=== PATIENT | male | born 1960 ===

== ENCOUNTER 2019-02-25 15:41 | Emergency (ER) | payer OTHER ==
--- NOTE | 2019-02-25 16:51 | ULT ---
VENOUS DOPPLER ULTRASOUND OF THE LEFT LOWER EXTREMITY: 02/25/19 HISTORY: Left lower extremity pain and edema. TECHNIQUE: Mckeon scale ultrasound with color flow and spectral Doppler imaging of the deep venous system of the l eft lower extremity is performed. FINDINGS: There is good flow, compression and augmentation noted in the left common femoral, femoral, deep femo ral, popliteal, posterior tibial and greater saphenous veins. IMPRESSION: No evidence of DVT in the left lower extremity. POS: [facility]
== END 2019-02-25 17:52 | disposition home or self-care (01) ==
LOC: ERS 15:41
DX: M79.662 Pain in left lower leg (principal)